=== PATIENT | female | born 1945 | race Two or more races ===

== ENCOUNTER → 2018-12-17 | Emergency (ER) | payer OTHER ==
[~2018-12-17] VITALS: Ht 162.6 cm; Wt 81.6 kg
[~2018-12-17] MED LIST: AMOX1TAB12 PO; COZAAR25 MG PO; DICLOFENAC SODI50 MG PO; FIORICET TABLET1 TAB PO; HYZAAR 50/12.51 TAB PO; METFORMIN HCL500 MG; METOPROLOL SUCC25 MG; NEXIUM 24HR20 MG; ORPH100T PO; PREVACID30 MG PO; TUSSI PRES-B L120 M1 PO
== END | disposition home or self-care (01) ==
LOC: ER 08:56
DX: B34.9 Viral infection, unspecified (principal)

== ENCOUNTER 2021-08-05 16:45 | Emergency (ER) | payer OTHER ==
[~2021-08-05] VITALS: Ht 162.6 cm; Wt 83.9 kg
[2021-08-05] MEDS ORDERED: CIPRO500 MG PO (22:24)
[2021-08-05] MEDS ORDERED: BACTRIM DS TAB1 EACH PO (22:32)
== END 2021-08-05 22:38 | disposition home or self-care (01) ==
LOC: ER 16:45
DX: N39.0 Urinary tract infection, site not specified (principal); R10.84 Generalized abdominal pain

== ENCOUNTER 2025-04-17 14:17 | Emergency (ER) | payer OTHER ==
[~2025-04-17] VITALS: Ht 162.6 cm; Wt 81.6 kg
[~2025-04-17 14:17] MED LIST changes: +BACTRIM DS TAB1 EACH PO; +CIPRO500 MG PO
[2025-04-17 19:10] LABS: BASO % 0.4 % (0.1-1.2); EOS % 0.7 % (0.7-7.0); HEMATOCRIT 41.1 % (34.1-44.9); HEMOGLOBIN 13.8 g/dL (11.2-15.7); LYMPH # 2.24 (1.18-3.74); LYMPH % 16.4 % (19.3-53.1); MEAN CORPUSCULAR HEMOGLOBIN 29.7 pg (25.6-32.2); MONO # 0.78 (0.24-0.82); MONO % 5.7 % (4.7-12.5); NEUT % 76.4 % (34.0-71.1); PLATELET COUNT 261 K/uL (163-369); RED BLOOD COUNT 4.64 M/uL (3.93-5.22); RED CELL DISTRIBUTION WIDTH 13.3 % (11.6-14.4)
[2025-04-17 19:10] LABS: URINE APPEARANCE Clear; URINE BILIRRUBIN Negative (NEGATIVE); URINE BLOOD Trace; URINE COLOR Yellow; URINE GLUCOSE Negative (NEGATIVE); URINE KETONE Negative (NEGATIVE); URINE LEUKOCYTE Negative; URINE NITRATE Negative; URINE PROTEIN Negative (NEGATIVE); URINE UROBILINOGEN 0.2 E.U./dl
[2025-04-17 19:13] LABS: URINE BACTERIA 41.5 uL (0.0-1933); URINE EPITHELIAL CELLS 7.1 uL (0.0-38.8); URINE RBC 8.2 uL (0.0-20.8); URINE WBC 2.5 uL (0.0-23.2)
[2025-04-17] MEDS ORDERED: KETOROLAC TROMETHAMINE 60 MG VIAL IM ONE ×2 (19:15→20:01)
[2025-04-17 19:37] LABS: ALBUMIN 3.5 gm/dL (3.4-5.0); BILIRUBIN TOTAL 0.32 mg/dL (0.3-1.2); CALCIUM 9.2 mg/dL (8.5-10.1); CREATININE SERUM 1.08 mg/dL (0.55-1.02); GFR 48.69; GLOBULINA 4.3 G/DL (2.4-3.5); POTASSIUM 4.03 mEq/L (3.5-5.1); TOTAL PROTEIN 7.8 gm/dL (6.4-8.2)
[2025-04-17 21:18] LABS: AMYLASE 45 U/L (25-115); LIPASE 47 U/L (13-75)
[2025-04-17] MEDS ORDERED: LEVOFLOXACIN750 MG PO (23:10)
[2025-04-17] MEDS ORDERED: PEPCID AC20 MG PO (23:10)
[2025-04-17] MEDS ORDERED: DICLOFENAC SODI75 MG PO (23:10)
== END 2025-04-17 23:37 | disposition home or self-care (01) ==
LOC: ER 14:17
PROVIDERS: Preventive Medicine Public Health & General Preventive Medicine
DX: M54.50 Low back pain, unspecified (principal); I10 Essential (primary) hypertension; E11.9 Type 2 diabetes mellitus without complications; Z79.84 Long term (current) use of oral hypoglycemic drugs; N28.1 Cyst of kidney, acquired